=== PATIENT | male | born 1980 | race Caucasian/White ===

== ENCOUNTER 2016-10-10 20:07 | Emergency (ER) | payer OTHER, MEDICARE, MEDICAID ==
[2016-10-11] MEDS ORDERED: HYDROCODONE/ACETAMINOPHEN 5/325MG TABLET ONE (01:18)
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
== END 2016-10-11 01:45 | disposition home or self-care (01) ==
LOC: ED 20:07
DX: S40.011A Contusion of right shoulder, initial encounter (principal); V47.5XXA Car driver injured in collision with fixed or stationary object in traffic accident, initial encounter; Y92.411 Interstate highway as the place of occurrence of the external cause
CPT/HCPCS: 73030; 99283 ×2; A9270